=== PATIENT | female | born 1945 | race Caucasian/White ===

== ENCOUNTER → 2016-09-21 | Outpatient (CLI) | payer MEDICARE ==
--- NOTE | 2016-10-03 09:38 | P.ARTDOP ---
Arterial Doppler LOWER EXTREMITY ARTERIAL DOPPLER: DATE OF SERVICE: 09/21/2016 Reason for study: Leg pain. Doppler waveforms: Multiphasic bilaterally throughout. Pulse volume recording: Normal configuration. Pressure gradients: None. Ankle-brachial indices: Greater than 1 bilaterally. Toe pressures: 135 on the right, 122 on the left Impression: Normal study.
== END | disposition home or self-care (01) ==
LOC: RADUSWWP 13:58
PROVIDERS: ATTEND Family Medicine
DX: R25.2 Cramp and spasm (principal); G47.62 Sleep related leg cramps
CPT/HCPCS: 93923

== ENCOUNTER 2017-08-10 11:23 | Inpatient (IN) | payer MEDICARE ==
[2017-08-10] MEDS ORDERED: NITROGLYCERIN OINT 1 INCH/GM PACKET TOPICAL STA (11:28)
--- NOTE | 2017-08-10 11:32 | ED ---
General Adult HPI - General Stated complaint: Chest Pain Time Seen by Provider: 08/10/17 11:23 Source: RN notes reviewed - History of Present Illness Initial comments: This is a 72-year-old female who presents emergency Department complaining of chest pain since Saturday. Patient states when it first started it was a pressure and was significant however since then it hasn't been quite as bad but it has been intermittent since Saturday. Patient also states over the last couple of days she's had vomiting and some diarrhea. Patient states currently she has a little bit of chest pain and the nitroglycerin seemed to help on the way in. Patient also received an aspirin on the way in. Patient denies any fever or chills. Patient denies any abdominal pain. Patient denies headache patient denies numbness weakness. Patient denies any dysuria hematuria urinary frequency. - Related Data Home Medications Medication Instructions Recorded Confirmed Albuterol Sulfate [Proair Hfa] 2 puff INHALATION RT-QID PRN 08/10/17 08/10/17 Escitalopram [Lexapro] 5 mg PO DAILY 08/10/17 08/10/17 Losartan Potassium [Cozaar] 100 mg PO DAILY 08/10/17 08/10/17 Nystatin [Nystop] 1 applic TOPICAL BID 08/10/17 08/10/17 Omeprazole [PriLOSEC] 40 mg PO DAILY 08/10/17 08/10/17 Tiotropium 18 Mcg/Puff [Spiriva] 1 cap INHALATION RT-DAILY 08/10/17 08/10/17 traMADol HCL [Ultram] 50 mg PO TID 08/10/17 08/10/17 Allergies Allergy/AdvReac Type Severity Reaction Status Date / Time No Known Allergies Allergy Verified 08/10/17 11:46 Review of Systems ROS Statement: Those systems with pertinent positive or pertinent negative responses have been documented in the HPI. ROS Other: All systems not noted in ROS Statement are negative. General Exam - General Exam Comments Initial Comments: GENERAL: Patient is well-developed and well-nourished. Patient is nontoxic and well- hydrated and is in no acute distress. ENT: Neck is soft and supple. No significant lymphadenopathy is noted. Oropharynx is clear. Moist mucous membranes. Neck has full range of motion without eliciting any pain. EYES: The sclera were anicteric and conjunctiva were pink and moist. Extraocular movements were intact and pupils were equal round and reactive to light. Eyelids were unremarkable. PULMONARY: Unlabored respirations. Good breath sounds bilaterally. No audible rales rhonchi or wheezing was noted. CARDIOVASCULAR: There is a regular rate and rhythm without any murmurs gallops or rubs. ABDOMEN: Soft and nontender with normal bowel sounds. No palpable organomegaly was noted. There is no palpable pulsatile mass. SKIN: Skin is clear with no lesions or rashes and otherwise unremarkable. NEUROLOGIC: Patient is alert and oriented x3. Cranial nerves II through XII are grossly intact. Motor and sensory are also intact. Normal speech, volume and content. Symmetrical smile. MUSCULOSKELETAL: Normal extremities with adequate strength and full range of motion. LYMPHATICS: No significant lymphadenopathy is noted PSYCHIATRIC: Normal psychiatric evaluation. Normal interpersonal interactions appears functionally intact in deals appropriately with others. Course Vital Signs 08/10/17 08/10/17 08/10/17 11:25 12:18 13:00 Temperature 97.5 F L Pulse Rate 80 132 H 126 H Respiratory 16 16 18 Rate Blood Pressure 94/50 80/59 83/63 O2 Sat by Pulse 96 97 94 L Oximetry 08/10/17 08/10/17 08/10/17 13:30 14:00 14:46 Temperature Pulse Rate 92 89 92 Respiratory 16 18 18 Rate Blood Pressure 84/59 91/65 93/67 O2 Sat by Pulse 97 97 Oximetry 08/10/17 08/10/17 08/10/17 15:00 15:22 15:26 Temperature Pulse Rate 95 90 115 H Respiratory 14 22 Rate Blood Pressure 96/68 130/70 O2 Sat by Pulse 97 94 L Oximetry 08/10/17 15:35 Temperature Pulse Rate 94 Respiratory Rate Blood Pressure O2 Sat by Pulse Oximetry Medical Decision Making - Medical Decision Making EKG shows A. fib with rapid ventricular response at 151 bpm QRS 76 QT interval 302 QTC is 478. Patient's EKG shows no ST segment elevation but there is some slight ST segment depression in leads V2 through V4. Patient converted in the emergency department EKG was done shows a normal sinus rhythm at 94 bpm IN interval is 190 QRS is 80 QT interval 380 QTC is [address] Hays and he said the patient would not be going to the [facility] with pneumonia no white count 22,000. I spoke to Dr. Bennett after this and made him aware of the patient's elevated troponin. I spoke with Dr. Fields he agreed to admit the patient admitted the patient and wrote admitting orders. I continued antibiotics and consult to cardiology and continue the heparin on the floor. After the patient was admitted I reevaluated at 245 and the patient was in no respiratory distress and stated she was feeling fine. Patient was seen by cardiology approximate 2 hours after the patient was admitted - Lab Data Result diagrams: 08/10/17 11:43 08/10/17 11:43 Lab Results 08/10/17 08/10/17 08/10/17 Range/Units 11:43 11:43 11:43 WBC 22.4 H (3.8-10.6) k/uL RBC 4.94 (3.80-5.40) m/uL Hgb 13.4 (11.4-16.0) gm/dL Hct 43.8 (34.0-46.0) % MCV 88.8 (80.0-100.0) fL MCH 27.2 (25.0-35.0) pg MCHC 30.7 L (31.0-37.0) g/dL RDW 14.8 (11.5-15.5) % Plt Count 563 H (150-450) k/uL Neutrophils % 84 % Lymphocytes % 8 % Monocytes % 6 % Eosinophils % 1 % Basophils % 0 % Neutrophils # 18.8 H (1.3-7.7) k/uL Lymphocytes # 1.9 (1.0-4.8) k/uL Monocytes # 1.2 H (0-1.0) k/uL Eosinophils # 0.1 (0-0.7) k/uL Basophils # 0.0 (0-0.2) k/uL Hypochromasia Moderate PT (9.0-12.0) sec INR (<1.2) APTT (22.0-30.0) sec Sodium 136 L (137-145) mmol/L Potassium 4.2 (3.5-5.1) mmol/L Chloride 102 (98-107) mmol/L Carbon Dioxide 22 (22-30) mmol/L Anion Gap 12 mmol/L BUN 10 (7-17) mg/dL Creatinine 1.11 H (0.52-1.04) mg/dL Est GFR (MDRD) Af Amer 59 (>60 ml/min/1.73 sqM) Est GFR (MDRD) Non-Af 48 (>60 ml/min/1.73 sqM) Glucose 182 H (74-99) mg/dL Plasma Lactic Acid Juanito (0.7-2.0) mmol/L Calcium 8.4 (8.4-10.2) mg/dL Magnesium 1.6 (1.6-2.3) mg/dL Total Bilirubin 0.8 (0.2-1.3) mg/dL AST 133 H (14-36) U/L ALT 54 H (9-52) U/L Alkaline Phosphatase 73 (38-126) U/L Total Creatine Kinase 628 H (30-135) U/L CK-MB (CK-2) 25.3 H* (0.0-2.4) ng/mL CK-MB (CK-2) Rel Index 4.0 Troponin I 12.900 H* (0.000-0.034) ng/mL Total Protein 6.6 (6.3-8.2) g/dL Albumin 3.6 (3.5-5.0) g/dL 08/10/17 08/10/17 Range/Units 11:43 13:10 WBC (3.8-10.6) k/uL RBC (3.80-5.40) m/uL Hgb (11.4-16.0) gm/dL Hct (34.0-46.0) % MCV (80.0-100.0) fL MCH (25.0-35.0) pg MCHC (31.0-37.0) g/dL RDW (11.5-15.5) % Plt Count (150-450) k/uL Neutrophils % % Lymphocytes % % Monocytes % % Eosinophils % % Basophils % % Neutrophils # (1.3-7.7) k/uL Lymphocytes # (1.0-4.8) k/uL Monocytes # (0-1.0) k/uL Eosinophils # (0-0.7) k/uL Basophils # (0-0.2) k/uL Hypochromasia PT 10.3 (9.0-12.0) sec INR 1.0 (<1.2) APTT 26.1 (22.0-30.0) sec Sodium (137-145) mmol/L Potassium (3.5-5.1) mmol/L Chloride (98-107) mmol/L Carbon Dioxide (22-30) mmol/L Anion Gap mmol/L BUN (7-17) mg/dL Creatinine (0.52-1.04) mg/dL Est GFR (MDRD) Af Amer (>60 ml/min/1.73 sqM) Est GFR (MDRD) Non-Af (>60 ml/min/1.73 sqM) Glucose (74-99) mg/dL Plasma Lactic Acid Juanito 2.0 (0.7-2.0) mmol/L Calcium (8.4-10.2) mg/dL Magnesium (1.6-2.3) mg/dL Total Bilirubin (0.2-1.3) mg/dL AST (14-36) U/L ALT (9-52) U/L Alkaline Phosphatase (38-126) U/L Total Creatine Kinase (30-135) U/L CK-MB (CK-2) (0.0-2.4) ng/mL CK-MB (CK-2) Rel Index Troponin I (0.000-0.034) ng/mL Total Protein (6.3-8.2) g/dL Albumin (3.5-5.0) g/dL Critical Care Time Critical Care Time: Yes Total Critical Care Time: 40 Disposition Clinical Impression: Non-STEMI (non-ST elevated myocardial infarction), Atrial fibrillation with rapid ventricular response, Pneumonia, Gastroenteritis, Sepsis Disposition: ADMITTED IP TO THIS [facility] Time of Disposition: 12:48
[2017-08-10] MEDS ORDERED: DILTIAZEM 5 MG/ML 5 ML VIAL IVP STA (11:38)
[2017-08-10] MEDS ORDERED: DILTIAZEM 125 MG in SODIUM CHLORIDE 0.9% 100 ML IV ONE (11:38)
[2017-08-10 11:52] LABS: Basophils % (A) 0 %; Eosinophils # (A) 0.1 k/uL (0-0.7); Eosinophils % (A) 1 %; HCT 43.8 % (34.0-46.0); HGB 13.4 gm/dL (11.4-16.0); Hypochromasia Moderate; Lymphocytes # (A) 1.9 k/uL (1.0-4.8); Lymphocytes % (A) 8 %; MCH 27.2 pg (25.0-35.0); MCHC 30.7 g/dL (31.0-37.0); MCV 88.8 fL (80.0-100.0); Mean Platelet Volume 8.1; Monocytes # (A) 1.2 k/uL (0-1.0); Monocytes % (A) 6 %; Neutrophils # (A) 18.8 k/uL (1.3-7.7); Neutrophils % (A) 84 %; Platelet Count 563 k/uL (150-450); RBC 4.94 m/uL (3.80-5.40); RDW 14.8 % (11.5-15.5); WBC 22.4 k/uL (3.8-10.6)
--- NOTE | 2017-08-10 12:01 | XR ---
EXAMINATION TYPE: XR chest 2V DATE OF EXAM: 08/10/2017 HISTORY: Chest Pain. REFERENCE: NONE. FINDINGS: There is an ill-defined opacity in the superior segment of the right lower lobe. There is u nderlying COPD. Heart size is upper limits of normal. Pleural spaces appear clear. IMPRESSION: 1. COPD. 2. BORDERLINE CARDIOMEGALY. 3. ILL-DEFINED OPACITY IN THE SUPERIOR SEGMENT OF THE RIGHT UPPER LOBE MAY REFLECT PNEUMONIA. FOLLOW- UP TO RESOLUTION WOULD BE SUGGESTED.
[2017-08-10 12:03] LABS: Partial Thromboplastin Time 26.1 sec (22.0-30.0); Prothrombin Time 10.3 sec (9.0-12.0)
[2017-08-10 12:18] LABS: Albumin 3.6 g/dL (3.5-5.0); Calcium 8.4 mg/dL (8.4-10.2); Magnesium 1.6 mg/dL (1.6-2.3); Total Bilirubin 0.8 mg/dL (0.2-1.3); Total Protein 6.6 g/dL (6.3-8.2)
[2017-08-10] MEDS ORDERED: SODIUM CHLORIDE 0.9% 500 ML IV ONE (12:19)
[2017-08-10 12:20] LABS: Potassium 4.2 mmol/L (3.5-5.1)
[2017-08-10 12:25] LABS: Creatine Kinase MB 25.3 ng/mL (0.0-2.4)
[2017-08-10 12:26] LABS: Troponin I 12.9 ng/mL (0.000-0.034)
[2017-08-10] MEDS ORDERED: HEPARIN SODIUM,PORCINE 5,000 UNIT/ML 1 ML VIAL IV ONE (12:45)
[2017-08-10] MEDS ORDERED: HEPARIN SOD,PORK IN 0.45% NACL 25,000 UNIT in 0.45% NACL 1 500ML.BAG IV SCH (12:45)
[2017-08-10] MEDS ORDERED: cefTRIAXone IN SWFI 1,000 MG/10 ML SYRINGE IVP STA (12:46)
[2017-08-10] MEDS ORDERED: SODIUM CHLORIDE 0.9% 1,000 ML IV ONE ×2 (12:50→16:22)
[2017-08-10] MEDS ORDERED: NITROGLYCERIN SL TABS 0.4 MG TAB SUBLINGUAL PRN ×3 (13:48→18:06)
[2017-08-10] MEDS ORDERED: FUROSEMIDE 10 MG/ML 2 ML VIAL IV ONE (15:09)
[2017-08-10] MEDS ORDERED: ASPIRIN 325 MG TAB PO STA (15:11)
[2017-08-10] MEDS ORDERED: ALPRAZolam 0.5 MG TAB PO PRN (15:11)
[2017-08-10] MEDS ORDERED: ALPRAZolam 0.25 MG TAB PO PRN (15:11)
[2017-08-10] MEDS ORDERED: SODIUM CHLORIDE 0.9% 1,000 ML in EMPTY BAG 1 BAG IV ONE (15:11)
[2017-08-10] MEDS ORDERED: ATORVASTATIN 80 MG TAB PO STA (15:11)
[2017-08-10] MEDS ORDERED: IPRATROPIUM-ALBUTEROL 3 ML NEB INHALATION STA (15:21)
[2017-08-10 15:42] LABS: ABG HCO3 15 mmol/L (21-25); ABG PCO2 35 mmHg (35-45); ABG PH 7.28 (7.35-7.45); ABG PO2 80 mmHg (83-108)
[2017-08-10 15:43] LABS: ABG Base Excess -9.9 mmol/L; ABG TCO2 17 mmol/L (19-24)
--- NOTE | 2017-08-10 15:46 | XR ---
EXAMINATION TYPE: XR chest 1V portable DATE OF EXAM: 08/10/2017 CLINICAL HISTORY: ST elevated myocardial infarction TECHNIQUE: Single AP portable upright view of the chest is obtained. COMPARISON: Chest x-ray from earlier today. FINDINGS: There is persistent mild cardiomegaly with central vascular congestion and right hilar as well as now more prominent right basilar opacities. Small amount of fluid is now seen in right minor fissure. Underlying emphysematous change is not excluded. Osseous structures remain demineralized. IMPRESSION: Chronic emphysematous change with mild cardiomegaly and mild central vascular congestion as well as right hilar infiltrate and/or atelectasis all redemonstrated. New developing right basilar infiltrate and/or atelectasis noted.
[2017-08-10] MEDS ORDERED: ROCURONIUM BROMIDE 10 MG/ML 10 ML VIAL IV ONE (16:00)
[2017-08-10] MEDS ORDERED: ETOMIDATE 2 MG/ML 10 ML VIAL ONE (16:00)
[2017-08-10] MEDS ORDERED: SUCCINYLCHOLINE CHLORIDE 100 MG/5 ML SYR IV ONE (16:00)
[2017-08-10] MEDS ORDERED: MIDAZOLAM 2 MG/2 ML VIAL ONE (16:00)
[2017-08-10] MEDS ORDERED: MIDAZOLAM 2 MG/2 ML VIAL IVP ONE ×3 (16:20→17:36)
[2017-08-10] MEDS ORDERED: LIDOCAINE 2% INJ 20 MG/ML SQ ONE (16:20)
[2017-08-10] MEDS ORDERED: BIVALIRUDIN BOLUS 250 MG/50 ML IV ONE (16:30)
[2017-08-10] MEDS ORDERED: BIVALIRUDIN 250 MG in SODIUM CHLORIDE 0.9% 50 ML IV ONE (16:30)
[2017-08-10] MEDS ORDERED: PRASUGREL 10 MG TAB NG-TUBE ONE (16:41)
[2017-08-10] MEDS: NITROGLYCERIN 1000MCG/10ML SYRINGE INTRACORON ONE ×2 (16:41→16:53)
[2017-08-10] MEDS ORDERED: IOHEXOL 350 MG/ML 125ML BOTTLE INJ ONE (17:19)
[2017-08-10 17:22] LABS: ABG Base Excess -9.3 mmol/L; ABG HCO3 18 mmol/L (21-25); ABG PCO2 55 mmHg (35-45); ABG PH 7.14 (7.35-7.45); ABG PO2 83 mmHg (83-108); ABG TCO2 20 mmol/L (19-24)
[2017-08-10] MEDS ORDERED: FUROSEMIDE 10 MG/ML 4 ML VIAL IVP ONE (17:46)
[2017-08-10] MEDS ORDERED: NOREPINEPHRIN 4 MG-0.9% NS PMX 4 MG/250 ML ML IV ONE (17:59)
[2017-08-10] MEDS ORDERED: ATROPINE SULFATE 0.1 MG/ML 10ML SYRINGE IV PRN (18:06)
[2017-08-10] MEDS ORDERED: ZOLPIDEM 5 MG TAB PO PRN (18:06)
[2017-08-10] MEDS ORDERED: MAG HYDROX/AL HYDROX/SIMETH 30 ML CUP PO PRN (18:06)
[2017-08-10] MEDS ORDERED: RX INFO: IV CONTRAST WAS GIVEN 1 EACH MISC MISCELLANE PRN (18:06)
--- NOTE | 2017-08-10 18:20 | ECHOT ---
TRANSESOPHAGEAL ECHOCARDIOGRAM INDICATION: Evaluation of the mitral valve. PROCEDURE: Patient was intubated and sedated. The probe induced into the esophagus without difficulty. Images were obtained. Following that, the probe was removed. FINDINGS: Left atrial size is normal. The left ventricular size and systolic function are normal. The posterolateral papillary muscle was ruptured with mitral valve leaflets and 4+ mitral regurgitation noted. There was mild tricuspid regurgitation. The aortic valve appears to be normal. CONCLUSION: 1. Normal left ventricular size and systolic function. 2. Ruptured posterolateral papillary muscle with 4+ mitral regurgitation. 3. Mild tricuspid regurgitation. MMODL / IJN: [id number] /
[2017-08-10 19:13] LABS: Glucose,Whole Blood 163 mg/dL (75-99)
--- NOTE | 2017-08-10 19:40 | XR ---
EXAMINATION TYPE: XR chest 1V portable DATE OF EXAM: 08/10/2017 CLINICAL HISTORY: Difficulty breathing had to be intubated. TECHNIQUE: Single AP portable supine view of the chest is obtained. COMPARISON: Chest x-ray from earlier today FINDINGS: There is new endotracheal tube with tip above aortic knob, approximately 5-6 cm above the jairo. There is new nasogastric tube projecting below left hemidiaphragm. There is cardiomegaly redemonstrated. There is chronic parenchymal change with increasing central vas cular congestion. There are persistent tiny bilateral pleural effusions and associated bibasilar atel ectasis and/or infiltrate. Visualized osseous structures are intact. IMPRESSION: 1. New ET and OGT are felt satisfactory in position. 2. Correlate for CHF exacerbation as there is cardiomegaly with suspected worsening mild to moderate central vascular congestion, suspect small bilateral pleural effusions and associated bibasilar atele ctasis and/or infiltrate.
[2017-08-10] MEDS ORDERED: NOREPINEPHRIN 4 MG-0.9% NS PMX 4 MG/250 ML ML IV SCH (19:45)
[2017-08-10] MEDS: PROPOFOL 1,000 MG in EMPTY BAG 1 BAG IV SCH ×2 (19:46→22:31)
[2017-08-10 19:47] LABS: HCT 44.9 % (34.0-46.0); HGB 13.8 gm/dL (11.4-16.0); Hypochromasia Marked; MCHC 30.6 g/dL (31.0-37.0); MCV 91.6 fL (80.0-100.0); Platelet Count 705 k/uL (150-450); RBC 4.91 m/uL (3.80-5.40); RDW 14.1 % (11.5-15.5)
[2017-08-10 19:50] LABS: WBC 30.3 k/uL (3.8-10.6)
[2017-08-10] MEDS: SODIUM CHLORIDE 0.9% 1,000 ML IV SCH (20:05)
[2017-08-10 20:08] LABS: Anion Gap 13 mmol/L; Blood Urea Nitrogen 11 mg/dL (7-17); Calcium 7.5 mg/dL (8.4-10.2); Carbon Dioxide 19 mmol/L (22-30); Chloride 106 mmol/L (98-107); Glucose 158 mg/dL (74-99); Magnesium 1.6 mg/dL (1.6-2.3); Phosphorus 4.2 mg/dL (2.5-4.5); Potassium 4.1 mmol/L (3.5-5.1); Sodium 138 mmol/L (137-145)
[2017-08-10] MEDS ORDERED: FUROSEMIDE 10 MG/ML 4 ML VIAL IV SCH (21:00)
[2017-08-10 21:03] VITALS: BMI 38.9
[2017-08-10 21:04] LABS: ABG Base Excess -10.7 mmol/L; ABG HCO3 16 mmol/L (21-25); ABG PCO2 45 mmHg (35-45); ABG PH 7.18 (7.35-7.45); ABG PO2 84 mmHg (83-108); ABG TCO2 18 mmol/L (19-24)
[2017-08-10] MEDS ORDERED: NALOXONE 0.4 MG/ML 1 ML VIAL IV PRN (21:21)
[2017-08-10] MEDS: MAGNESIUM SULFATE-D5W PMX 1 GM in DEXTROSE/WATER 1 100ML.BAG IVPB SCH ×2 (21:30→22:31)
[2017-08-10 21:31] LABS: Creatine Kinase MB 71.4 ng/mL (0.0-2.4)
--- NOTE | 2017-08-10 23:05 | XR ---
EXAMINATION TYPE: XR chest 1V portable DATE OF EXAM: 08/10/2017 CLINICAL HISTORY: Central line placement. TECHNIQUE: Single AP portable supine view of the chest is obtained. COMPARISON: Chest x-ray from earlier today FINDINGS: There is new left subclavian central venous catheter with tip in SVC. There is stable endotracheal and orogastric tubes. Cardiac silhouette size is stable and mildly enlar ged. There is central vascular congestion with bibasilar opacity felt to reflect atelectasis and/or i nfiltrate and probable small bilateral pleural effusions. Osseous structures are intact. IMPRESSION: New left-sided subclavian central venous catheter with tip in SVC, no sizable pneumothora x after catheter placement.
[2017-08-10] MEDS ORDERED: SODIUM CHLORIDE 0.9% 99 ML with VASOPRESSIN 20 UNIT IV SCH ×2 (23:15)
[2017-08-10] MEDS ORDERED: MILRINONE-D5W PMX 20 MG in DEXTROSE/WATER 1 100ML.BAG IV SCH (23:30)
--- NOTE | 2017-08-10 23:43 | P.GSCN ---
History of Present Illness Consult date: 08/10/17 Reason for Consult: Severe mitral regurgitation Requesting physician: Rojas Bennett History of present illness: The patient is a 72-year-old female who reports chest pain associated with nausea and vomiting which began several days ago. She presented to the emergency department early this morning and was felt to have pneumonia. Her troponin was elevated and she went for a cardiac catheterization which revealed an occluded OM1 which was stented. The patient was then loaded with Effient. Transesophageal echocardiogram revealed severe mitral regurgitation with a ruptured papillary muscle. The patient was intubated and an intra-aortic balloon pump was placed. She was started on Levophed and diuretics. I was asked to evaluate her for treatment recommendations. Review of Systems ROS unobtainable: due to endotracheal tube Past Medical History Past Medical History: Chest Pain / Angina, COPD, GERD/Reflux, Hypertension, Osteoarthritis (OA) History of Any Multi-Drug Resistant Organisms: None Reported Past Surgical History: Bladder Surgery, Cholecystectomy, Hysterectomy, Tonsillectomy Past Anesthesia/Blood Transfusion Reactions: No Reported Reaction Past Psychological History: No Psychological Hx Reported Smoking Status: Current every day smoker Past Alcohol Use History: None Reported Past Drug Use History: None Reported Medications and Allergies Home Medications Medication Instructions Recorded Confirmed Type Albuterol Sulfate [Proair Hfa] 2 puff INHALATION RT-QID PRN 08/10/17 08/10/17 History Escitalopram [Lexapro] 5 mg PO DAILY 08/10/17 08/10/17 History Losartan Potassium [Cozaar] 100 mg PO DAILY 08/10/17 08/10/17 History Nystatin [Nystop] 1 applic TOPICAL BID 08/10/17 08/10/17 History Omeprazole [PriLOSEC] 40 mg PO DAILY 08/10/17 08/10/17 History Tiotropium 18 Mcg/Puff [Spiriva] 1 cap INHALATION RT-DAILY 08/10/17 08/10/17 History traMADol HCL [Ultram] 50 mg PO TID 08/10/17 08/10/17 History Allergies Allergy/AdvReac Type Severity Reaction Status Date / Time No Known Allergies Allergy Verified 08/10/17 11:46 Surgical - Exam Vital Signs Temp Pulse Resp BP Pulse Ox 97.5 F L 80 16 94/50 96 08/10/17 11:25 08/10/17 11:25 08/10/17 11:25 08/10/17 11:25 08/10/17 11:25 - General well developed - Respiratory bilateral: rales - Cardiovascular Rhythm: regular - Abdomen Abdomen: soft, non tender Results - Labs 08/10/17 19:32 08/10/17 19:32 Abnormal Lab Results - Last 24 Hours (Table) 08/10/17 08/10/17 08/10/17 Range/Units 11:43 11:43 11:43 WBC 22.4 H (3.8-10.6) k/uL MCHC 30.7 L (31.0-37.0) g/dL Plt Count 563 H (150-450) k/uL Neutrophils # 18.8 H (1.3-7.7) k/uL Monocytes # 1.2 H (0-1.0) k/uL ABG pH (7.35-7.45) ABG pCO2 (35-45) mmHg ABG pO2 (83-108) mmHg ABG HCO3 (21-25) mmol/L ABG Total CO2 (19-24) mmol/L ABG O2 Saturation (94-97) % Sodium 136 L (137-145) mmol/L Carbon Dioxide (22-30) mmol/L Creatinine 1.11 H (0.52-1.04) mg/dL Glucose 182 H (74-99) mg/dL POC Glucose (mg/dL) (75-99) mg/dL Calcium (8.4-10.2) mg/dL AST 133 H (14-36) U/L ALT 54 H (9-52) U/L Total Creatine Kinase 628 H (30-135) U/L CK-MB (CK-2) 25.3 H* (0.0-2.4) ng/mL Troponin I 12.900 H* (0.000-0.034) ng/mL 08/10/17 08/10/17 08/10/17 Range/Units 15:27 17:05 18:53 WBC (3.8-10.6) k/uL MCHC (31.0-37.0) g/dL Plt Count (150-450) k/uL Neutrophils # (1.3-7.7) k/uL Monocytes # (0-1.0) k/uL ABG pH 7.28 L 7.14 L* (7.35-7.45) ABG pCO2 55 H (35-45) mmHg ABG pO2 80 L (83-108) mmHg ABG HCO3 15 L 18 L (21-25) mmol/L ABG Total CO2 17 L (19-24) mmol/L ABG O2 Saturation 92.0 L (94-97) % Sodium (137-145) mmol/L Carbon Dioxide (22-30) mmol/L Creatinine (0.52-1.04) mg/dL Glucose (74-99) mg/dL POC Glucose (mg/dL) 163 H (75-99) mg/dL Calcium (8.4-10.2) mg/dL AST (14-36) U/L ALT (9-52) U/L Total Creatine Kinase (30-135) U/L CK-MB (CK-2) (0.0-2.4) ng/mL Troponin I (0.000-0.034) ng/mL 08/10/17 08/10/17 08/10/17 Range/Units 19:32 19:32 19:34 WBC 30.3 H* (3.8-10.6) k/uL MCHC 30.6 L (31.0-37.0) g/dL Plt Count 705 H (150-450) k/uL Neutrophils # (1.3-7.7) k/uL Monocytes # (0-1.0) k/uL ABG pH 7.18 L* (7.35-7.45) ABG pCO2 (35-45) mmHg ABG pO2 (83-108) mmHg ABG HCO3 16 L (21-25) mmol/L ABG Total CO2 18 L (19-24) mmol/L ABG O2 Saturation 93.0 L (94-97) % Sodium (137-145) mmol/L Carbon Dioxide 19 L (22-30) mmol/L Creatinine (0.52-1.04) mg/dL Glucose 158 H (74-99) mg/dL POC Glucose (mg/dL) (75-99) mg/dL Calcium 7.5 L (8.4-10.2) mg/dL AST (14-36) U/L ALT (9-52) U/L Total Creatine Kinase (30-135) U/L CK-MB (CK-2) (0.0-2.4) ng/mL Troponin I (0.000-0.034) ng/mL 08/10/17 Range/Units 20:42 WBC (3.8-10.6) k/uL MCHC (31.0-37.0) g/dL Plt Count (150-450) k/uL Neutrophils # (1.3-7.7) k/uL Monocytes # (0-1.0) k/uL ABG pH (7.35-7.45) ABG pCO2 (35-45) mmHg ABG pO2 (83-108) mmHg ABG HCO3 (21-25) mmol/L ABG Total CO2 (19-24) mmol/L ABG O2 Saturation (94-97) % Sodium (137-145) mmol/L Carbon Dioxide (22-30) mmol/L Creatinine (0.52-1.04) mg/dL Glucose (74-99) mg/dL POC Glucose (mg/dL) (75-99) mg/dL Calcium (8.4-10.2) mg/dL AST (14-36) U/L ALT (9-52) U/L Total Creatine Kinase 1061 H (30-135) U/L CK-MB (CK-2) 71.4 H* (0.0-2.4) ng/mL Troponin I (0.000-0.034) ng/mL Diabetes panel 08/10/17 08/10/17 Range/Units 11:43 19:32 Sodium 136 L 138 (137-145) mmol/L Potassium 4.2 4.1 (3.5-5.1) mmol/L Chloride 102 106 (98-107) mmol/L Carbon Dioxide 22 19 L (22-30) mmol/L BUN 10 11 (7-17) mg/dL Creatinine 1.11 H 1.00 (0.52-1.04) mg/dL Glucose 182 H 158 H (74-99) mg/dL Calcium 8.4 7.5 L (8.4-10.2) mg/dL AST 133 H (14-36) U/L ALT 54 H (9-52) U/L Alkaline Phosphatase 73 (38-126) U/L Total Protein 6.6 (6.3-8.2) g/dL Albumin 3.6 (3.5-5.0) g/dL Calcium panel 08/10/17 08/10/17 Range/Units 11:43 19:32 Calcium 8.4 7.5 L (8.4-10.2) mg/dL Phosphorus 4.2 (2.5-4.5) mg/dL Albumin 3.6 (3.5-5.0) g/dL Pituitary panel 08/10/17 08/10/17 Range/Units 11:43 19:32 Sodium 136 L 138 (137-145) mmol/L Potassium 4.2 4.1 (3.5-5.1) mmol/L Chloride 102 106 (98-107) mmol/L Carbon Dioxide 22 19 L (22-30) mmol/L BUN 10 11 (7-17) mg/dL Creatinine 1.11 H 1.00 (0.52-1.04) mg/dL Glucose 182 H 158 H (74-99) mg/dL Calcium 8.4 7.5 L (8.4-10.2) mg/dL Adrenal panel 08/10/17 08/10/17 Range/Units 11:43 19:32 Sodium 136 L 138 (137-145) mmol/L Potassium 4.2 4.1 (3.5-5.1) mmol/L Chloride 102 106 (98-107) mmol/L Carbon Dioxide 22 19 L (22-30) mmol/L BUN 10 11 (7-17) mg/dL Creatinine 1.11 H 1.00 (0.52-1.04) mg/dL Glucose 182 H 158 H (74-99) mg/dL Calcium 8.4 7.5 L (8.4-10.2) mg/dL Total Bilirubin 0.8 (0.2-1.3) mg/dL AST 133 H (14-36) U/L ALT 54 H (9-52) U/L Alkaline Phosphatase 73 (38-126) U/L Total Protein 6.6 (6.3-8.2) g/dL Albumin 3.6 (3.5-5.0) g/dL - Imaging Chest x-ray: report reviewed, image reviewed Assessment and Plan Assessment: Ruptured papillary muscle with acute severe mitral regurgitation Plan: The patient's cardiac catheterization revealed occlusion of the OM1 which was subsequently stented. The patient was then loaded with Effient. Her transesophageal echocardiogram reveals severe mitral regurgitation with what appears to be a ruptured papillary muscle. An intra-aortic balloon pump was placed in the [place] and the patient was started on Levophed. Given these findings, the patient will need mitral valve replacement on an urgent or possible emergent basis. Ideally we would stabilize her from a medical standpoint and treat her heart failure. In any event, I do believe she would be better served at a tertiary center for both medical management and surgical intervention. I did speak with Dr. Bennett who is in agreement. I have spoken with [facility] and they have agreed to accept the patient in transfer. I also spoke with the patient's family members. All their questions were answered to their satisfaction. Time with Patient: Greater than 30
[2017-08-11 00:22] LABS: ABG Base Excess -12.6 mmol/L; ABG HCO3 14 mmol/L (21-25); ABG PCO2 38 mmHg (35-45); ABG PO2 218 mmHg (83-108); ABG TCO2 15 mmol/L (19-24)
[2017-08-11] MEDS ORDERED: MORPHINE SULFATE 5 MG/ML SYRINGE IVP PRN (00:30)
[2017-08-11] MEDS ORDERED: NOREPINEPHRIN 16 MG-0.9%NS PMX 16 MG/250 ML ML IV SCH (00:30)
[2017-08-11 00:52] VITALS: BP 117/68; RESP 32; TEMP 97.7
[2017-08-11] MEDS: PROPOFOL 1,000 MG in EMPTY BAG 1 BAG IV SCH ×2 (02:00→03:54)
[2017-08-11] MEDS: SODIUM CHLORIDE 0.9% 1,000 ML IV SCH (02:00)
[2017-08-11 04:27] VITALS: PULSE 116
[2017-08-11] MEDS ORDERED: INSULIN ASPART 100 UNIT/ML 1 ML 10 ML VIAL SQ SCH (06:00)
--- NOTE | 2017-08-11 07:54 | CONS ---
CONSULTATION Mrs. Rosales is a 72-year-old female with no history of coronary artery disease, history of hypertension, chronic tobacco use, who presented with symptoms of nausea, vomiting, and diarrhea going on for the last few days and since Saturday she has been complaining of chest discomfort across the chest radiating to the neck on and off with progressive dyspnea, came into the emergency room. She was noted to be in atrial fibrillation. Subsequently converted to sinus mechanism. Her initial troponin was 12. The patient has no pain at the time my evaluation, but she is quite dyspneic. She has some dizziness. She is not aware of any palpitation. She has no peripheral edema. No clear PND nor orthopnea on a regular basis. She has no prior cardiac history. MEDICATION: Her medications at home include losartan 100 mg daily, nystatin, omeprazole, Spiriva, tramadol, Lexapro, and ProAir. REVIEW OF SYSTEMS: RESPIRATORY: She has dyspnea on exertion, history of chronic tobacco use, and cough. GI SYSTEM: She had nausea and vomiting. No diarrhea. SYSTEM: No dysuria or hematuria. NERVOUS SYSTEM: No history of stroke or seizure. PHYSICAL EXAMINATION: She is a 72-year-old female, alert, dyspneic. Blood pressure 96/68 with a heart in 90s. HEAD: Normocephalic. EYES: Sclerae anicteric. LUNGS: With decreased air exchange and diffuse wheezes bilaterally. HEART: Regular rhythm S1, S2. No S3 with soft systolic murmur. No diastolic murmur. No rub. ABDOMEN: Soft, mildly distended. Positive bowel sounds. No organomegaly. EXTREMITIES: No edema. Intact distal pulses. LAB DATA: BUN and creatinine 10 and 1.1. Potassium 4.2. Her troponin 12.9. Her ALT is 54, AST of 133, hemoglobin of 13.4, white blood cells 22.4. Initial EKG revealed atrial fibrillation with a rate of [address]-T wave changes. Subsequent EKG, she is in sinus mechanism with left axis deviation and mild T-wave changes laterally. Her chest x-ray raised the suggestion for a questionable infiltrate versus edema. IMPRESSION: 1. Myocardial infarction which started prior to admission and could have started Saturday with recurrent pain. 2. Symptoms of progressive dyspnea with a combination of congestive heart failure and chronic obstructive pulmonary disease. 3. Paroxysmal atrial fibrillation. 4. Chronic tobacco use. 5. Hypertension. RECOMMENDATION: The patient will receive a dose of IV Lasix now. An echocardiogram with Doppler will be obtained. I recommend proceed with coronary angiography to assess her status and guide treatment. Depending on the progress, further recommendation will be made. Those findings and recommendation were discussed with the patient and her family. Thank you for this consult. We will follow with you. DALI / TRESSAN: [id number] /
[2017-08-11] MEDS ORDERED: traMADol 50 MG TAB PO SCH (09:00)
[2017-08-11] MEDS ORDERED: LOSARTAN 50 MG TAB PO SCH (09:00)
[2017-08-11] MEDS ORDERED: PANTOPRAZOLE 40 MG TABLET PO SCH (09:00)
[2017-08-11] MEDS ORDERED: cefTRIAXone IN SWFI 1,000 MG/10 ML SYRINGE IVP SCH (09:00)
[2017-08-11] MEDS ORDERED: ASPIRIN 81 MG PO SCH (09:00)
[2017-08-11] MEDS ORDERED: PANTOPRAZOLE 40 MG/10 ML VIAL IV SCH (09:00)
[2017-08-11] MEDS ORDERED: ESCITALOPRAM 10 MG TAB PO SCH (09:00)
[2017-08-11] MEDS ORDERED: ATORVASTATIN 40 MG TAB PO SCH (09:00)
[2017-08-11] MEDS ORDERED: ASPIRIN 325 MG TAB PO SCH (09:00)
[2017-08-11] MEDS ORDERED: NYSTATIN 100,000 UNIT/GM POWD 15 GM TOPICAL SCH (09:00)
--- NOTE | 2017-08-11 09:48 | CC ---
CARDIAC CATHETERIZATION REPORT Ms. Rosales 72-year-old female with known history of chronic tobacco use, who presented to the emergency room with symptoms of nausea and vomiting and chest discomfort that started 4 days ago on and off. On presentation, her troponin was 12 and she had atrial fibrillation that subsequently converted to sinus mechanism. The patient was complaining of progressive dyspnea. In view of that, recommendation made regarding cardiac catheterization, the procedure as well as risks and complications were discussed with the patient and her family who are in full understanding and agreement. Because of her progressive dyspnea and difficulty lying supine and the findings consistent with pulmonary edema, patient was intubated electively prior to the start of the procedure. DESCRIPTION OF PROCEDURE: After obtaining sedated state by the anesthesia department, using Xylocaine anesthesia and sterile technique, a 6-Filipino sheath was introduced in the right femoral artery. Selective right and left coronary angiography was performed using 6-Filipino 4 bend right and left Xiomy catheter. Multiple views of the coronary artery including hemiaxial views were obtained. Following that, angioplasty and stenting of the left circumflex obtuse marginal branch was performed. Following that, 6-Filipino tight pigtail catheter was introduced into the left ventricle and a 30 degree OCAMPO view of the left ventricle was obtained. FINDINGS: 1. Left main: This is a short size vessel that bifurcated immediately to the LAD and left circumflex. Left main coronary artery has no evidence of high-grade stenosis. 2. Left anterior descending artery: This is a large-sized vessel reaching towards the apex with a wraparound apex segment giving rise to a large diagonal branch. The left anterior descending artery as well as branches have mild plaque in the mid segment with no evidence of high-grade stenosis. 3. Left circumflex: This is a nondominant vessel giving rise to 2 obtuse marginal branches. The first obtuse marginal branch is totally occluded proximally with no antegrade flow. The 2nd obtuse marginal branch has no evidence of high-grade stenosis. 4. Right coronary artery: This is a large dominant vessel bifurcating distally to PDA and posterolateral segment and branches. The right coronary artery as well as branches have no evidence of obstructive disease. 5. Collaterals: There is collaterals from the distal right coronary artery toward the obtuse marginal branch. 6. Left ventriculogram is performed in 30 degree OCAMPO view and revealed a normal left ventricular size and systolic function with 4+ mitral regurgitation. 7. 8. HEMODYNAMICS: There was no gradient across the aortic valve. The left ventricle end-diastolic pressure was 36 minute Hg. CONCLUSION: 1. Acutely occluded 1st obtuse marginal branch at the takeoff. 2. Preserved systolic function with 4+ mitral regurgitation highly suggestive of a rupture papillary muscle. RECOMMENDATION: The patient will undergo angioplasty and stenting of the left circumflex. MMODL / IJN: [id number] /
--- NOTE | 2017-08-11 10:09 | PTCA ---
PERCUTANEOUSTRANS CORORONARY ANGIOGRAPHY Mrs. Rosales is a 72-year-old female with no prior documented history of obstructive coronary artery disease, who presented with evidence of myocardial infarction and started the pain about 4 days ago. Her troponin on presentation was 12. In the emergency room, she became more dyspneic, requiring elective mechanical ventilation. Her cardiac catheterization revealed a totally occluded first obtuse marginal branch. Recommendations were made regarding coronary angioplasty and stenting of that vessel. PROCEDURE: A 6-Guinean FR4 guiding catheter was introduced into the system. After cannulating the left main, a 0.014 balanced medium weight J-wire was advanced across the lesion and positioned distally. Then a 2.5 x 12 mm Trek balloon was advanced and one inflation was done. Following that the balloon was removed and an export catheter was introduced and 1 run was done with removal of a thrombotic material. Following that, a 2.5 x 15 mm Xience Alpine stent was deployed and it was dilated at 14 atmospheres. After the last inflation, after appropriate wait the balloon and the guidewire were withdrawn back in the guiding catheter. Images were obtained repeated. Those images reveal stable successful stenting with evidence of no reflow in the distal segment. Following that, catheter, the balloon and the guidewire were removed and a 6-Guinean tight pigtail catheter was introduced into the left ventricle and a 30 degree OCAMPO view of the left ventricle was obtained. Following that, I proceeded to perform transesophageal echocardiogram that will be dictated separately. Following that, using fluoroscopy guidance, intra-aortic balloon pump was introduced in the right femoral artery and secured in place. Of note, the patient received Angiomax per protocol as well as oral loading dose of Effient. RESULTS: Successful stenting of the first obtuse marginal branch with reduction of stenosis from 100% to 0% with no reflow in the distal segment of the vessel. RECOMMENDATIONS: The patient has evidence consistent with rupture posterolateral papillary muscle with 4+ mitral regurgitation. In view of that I will obtain a surgical consultation for mitral valve replacement. Unfortunately, prognosis is quite guarded. Those findings and recommendations were discussed with the family who are in full understanding and agreement. MMODL / IJN: [id number] /
--- NOTE | 2017-08-11 11:15 | PCN ---
PROCEDURE NOTE DATE OF PROCEDURE: 08/10/2017. PREOPERATIVE DIAGNOSIS: 1. Severe mitral regurgitation 2. Hemodynamic instability. POSTOPERATIVE DIAGNOSIS: same PROCEDURE: Placement of left subclavian triple-lumen catheter. SURGEON: Wade Santiago MD. JAVA SDET: None. ANESTHESIA: Local with IV sedation. SPECIMENS: None. COMPLICATIONS: None. INDICATION: The patient is a 72-year-old female who presented to the hospital with a non ST elevation myocardial infarction. She was noted to have acute rupture of the papillary muscle resulting in severe mitral valve regurgitation. Central access was required. The risks, benefits, alternatives to this procedure discussed with the patient's family. All questions were answered. Consent was obtained. PROCEDURE IN DETAIL: Ashoulder roll was placed beneath the shoulder blades and the patient was placed in Trendelenburg position. The chest was prepped and draped in the usual sterile fashion. Local anesthetic was infiltrated into the subcutaneous tissue. Using a finder needle, the left subclavian vein was accessed easily. A guidewire was placed. Using standard Seldinger technique, a dilator was passed over the guidewire followed by a triple-lumen catheter. All 3 ports aspirated and flushed easily. Sterile saline was injected. The catheter was secured to the skin using a suture. A sterile dressing was applied. Followup chest x-ray revealed good position of the triple-lumen catheter without evidence of pneumothorax. The patient appeared to have tolerated the procedure well. There were no major complications. MMODL / IJN: [id number] / MTDD
--- NOTE | 2017-08-11 14:52 | ECHOF ---
Referral Reason:mi MEASUREMENTS -------- HEIGHT: 162.6 cm WEIGHT: 90.7 kg BP: 94/57 RVIDd: 2.2 cm (< 3.3) IVSd: 1.2 cm (0.6 - 1.1) LVIDd: 4.1 cm (3.9 - 5.3) LVPWd: 1.3 cm (0.6 - 1.1) LAESV Index (A-L): 19.69 ml/m RAP: 5.00 mmHg RVSP: 66.74 mmHg FINDINGS -------- Sinus rhythm. Resting tachycardia (HR>100bpm). This was a technically adequate study. The left ventricular size is normal. There is mild concentric left ventricular hypertrophy. Left ventricular systolic function is hyperdynamic with an estimated EF of >70%. The RV was not well visualized. Normal LA size by volume 22+/-6 ml/m2. The right atrium was not well visualized. There is mild aortic valve sclerosis. Severe mitral regurgitation is present. Flail/partial flail of the posterior leaflet. The tricuspid valve was not well visualized. Mild tricuspid regurgitation present. There is moder ate to severe pulmonary hypertension. The right ventricular systolic pressure, as measured by Doppl er, is 66.74mmHg. The pulmonic valve was not well visualized. The aortic root size is normal. The inferior vena cava is dilated with no significant inspiratory collapse which is consistent estima hari right atrial pressure of >20 mmHg. There is no pericardial effusion. CONCLUSIONS -------- 1. Sinus rhythm. 2. Resting tachycardia (HR>100bpm). 3. This was a technically adequate study. 4. The left ventricular size is normal. 5. There is mild concentric left ventricular hypertrophy. 6. Left ventricular systolic function is hyperdynamic with an estimated EF of >70%. 7. The RV was not well visualized. 8. Normal LA size by volume 22+/-6 ml/m2. 9. The right atrium was not well visualized. 10. There is mild aortic valve sclerosis. 11. Severe mitral regurgitation is present. 12. Flail/partial flail of the posterior leaflet. 13. The tricuspid valve was not well visualized. 14. Mild tricuspid regurgitation present. 15. There is moderate to severe pulmonary hypertension. 16. The right ventricular systolic pressure, as measured by Doppler, is 66.74mmHg. 17. The pulmonic valve was not well visualized. 18. The aortic root size is normal. 19. The inferior vena cava is dilated with no significant inspiratory collapse which is consistent es timated right atrial pressure of >20 mmHg. 20. There is no pericardial effusion. [employer]LECTION DRIVER: Sincere Morales RDCS
--- NOTE | 2017-08-12 12:40 | DS ---
DISCHARGE SUMMARY HISTORY AND PHYSICAL/DISCHARGE SUMMARY: DATE OF ADMISSION: 08/10/17. DATE OF TRANSFER: 08/11/17. FINAL DIAGNOSES: 1. Acute myocardial infarction. 2. Paroxysmal atrial fibrillation. 3. Essential hypertension. 4. Acute ruptured posterior lateral papillary muscle causing 4+ mitral regurgitation, likely due to acute myocardial infarction. 5. Chronic obstructive pulmonary disease. 6. Gastroesophageal reflux disease. 7. Primary osteoarthritis. 8. Chronic nicotine dependence, patient is a cigarette smoker. HOSPITAL COURSE: This patient was admitted from the ER with having chest pain since Saturday. Patient initial troponin was 12.9. The patient taken to the cardiac laboratory secretary by Dr. Bennett. Successful stenting of the first obtuse marginal branch was carried out. He also did a SANTINO that found to have a ruptured posterolateral papillary muscle with severe mitral regurgitation. Dr. Santiago from cardiothoracic was called in. The patient had to be intubated and put on a intra-aortic balloon pump. The patient will need emergent surgical intervention and he talked to [facility] where the patient was transferred. I did come to the ICU the evening twice to see the patient. Patient had not returned from the laboratory secretary and I was not aware of the patient being transferred to [facility] and discovered this morning when I came in. The patient was not seen or examined by me. History is obtained as per my colleagues and consultants. Copy to Dr. Alan. DALI / SERGIO: [id number] /
== END 2017-08-11 06:31 | disposition short-term general hospital (02) | DRG 246 ==
LOC: EC 11:23 → 6SEL 13:48 → 6ICU 18:02
PROVIDERS: ADMIT Hospitalist; ATTEND Hospitalist
PROC: 4A023N7 Measurement of Cardiac Sampling and Pressure, Left Heart, Percutaneous Approach (ICD-10-PCS; 2017-08-10)
PROC: B2111ZZ Fluoroscopy of Multiple Coronary Arteries using Low Osmolar Contrast (ICD-10-PCS; 2017-08-10)
PROC: B246ZZ4 Ultrasonography of Right and Left Heart, Transesophageal (ICD-10-PCS; 2017-08-10)
PROC: 027034Z Dilation of Coronary Artery, One Artery with Drug-eluting Intraluminal Device, Percutaneous Approach (ICD-10-PCS; 2017-08-10 15:47)
PROC: 05H633Z Insertion of Infusion Device into Left Subclavian Vein, Percutaneous Approach (ICD-10-PCS; principal; 2017-08-11)
DX: I21.4 Non-ST elevation (NSTEMI) myocardial infarction (principal); I51.2 Rupture of papillary muscle, not elsewhere classified; I48.0 Paroxysmal atrial fibrillation; I34.0 Nonrheumatic mitral (valve) insufficiency; J44.9 Chronic obstructive pulmonary disease, unspecified; I10 Essential (primary) hypertension; M19.91 Primary osteoarthritis, unspecified site; R42 Dizziness and giddiness; K21.9 Gastro-esophageal reflux disease without esophagitis; F17.210 Nicotine dependence, cigarettes, uncomplicated; Z90.710 Acquired absence of both cervix and uterus; Z90.49 Acquired absence of other specified parts of digestive tract; Z90.89 Acquired absence of other organs; Z79.899 Other long term (current) drug therapy
CPT/HCPCS: 36415; 36600; 71045; 71046; 80048; 80053; 82550; 82553; 82805; 83605; 83735; 84100; 84484; 85025; 85027; 85610; 85730; 87040; 93005; 93306; 93312; 93320; 93325; 93458; 94002; 94003; 94640; 96365; 96368; 96375; 96376; 99291